=== PATIENT | female | born 1980 | race American Indian/Alaskan Native ===

== ENCOUNTER 2019-10-09 18:09 | Emergency (ER) | payer MEDICAID ==
--- NOTE | 2019-10-09 19:40 | Event Note ---
ED Screening Note ED Screening Note: generalized weakness states that left hip pain which is chronic states she has bilateral rib pain states she had surgery on the left hip in May 04, on coumadin and lovenox, flexeril, gabapentin, flexeril, roxicodone This initial assessment/diagnostic orders/clinical plan/treatment(s) is/are subject to change based on patients health status, clinical progression and re- assessment by fellow clinical providers in the ED. Further treatment and workup at subsequent clinical providers discretion. Patient/guardian urged not to elope from the ED as their condition may be serious if not clinically assessed and managed. Initial orders include: labs, XR chest
[2019-10-09 20:14] LABS: Hematocrit 32.6 % (30.3-42.9); Hemoglobin 10.7 gm/dl (10.1-14.3); Mean Corpuscular HGB Conc 33 % (30-34); Mean Corpuscular Volume 83 fl (79-97); Platelet Count 249 K/mm3 (140-440); Red Blood Count 3.94 M/mm3 (3.65-5.03); Red Cell Distribution Width 16.3 % (13.2-15.2)
[2019-10-09 20:22] LABS: Lymphocytes % (Auto) 44.7 % (13.4-35.0)
[2019-10-09 20:23] LABS: Basophils # (Auto) 0.1 K/mm3 (0.0-0.1); Basophils % (Auto) 2.9 % (0.0-1.8); Eosinophils # (Auto) 0.1 K/mm3 (0.0-0.4); Eosinophils % (Auto) 2.9 % (0.0-4.3); Lymphocytes # (Auto) 1.9 K/mm3 (1.2-5.4); Monocytes # (Auto) 0.3 K/mm3 (0.0-0.8)
[2019-10-09 20:34] LABS: Alanine Aminotransferase 6 units/L (7-56); Albumin 3.8 g/dL (3.9-5); BUN/Creatinine Ratio 16; Blood Urea Nitrogen 11 mg/dL (7-17); Calcium 8.8 mg/dL (8.4-10.2); Hemolysis Index 9
[2019-10-09 21:49] LABS: Bacteria,Urine 1+ /HPF (Negative); Color,Urine Yellow (Yellow); Ictotest,Urine Negative (Negative); Urobilinogen,Urine < 2.0 mg/dL (<2.0)
--- NOTE | 2019-10-09 21:54 | XRay Report ---
CHEST 2 VIEWS INDICATION / CLINICAL INFORMATION: bilateral rib pain. COMPARISON: None available. FINDINGS: SUPPORT DEVICES: None. HEART / MEDIASTINUM: No significant abnormality. LUNGS / PLEURA: No significant pulmonary or pleural abnormality. No pneumothorax. ADDITIONAL FINDINGS: No significant additional findings. IMPRESSION: 1. No acute abnormality of the chest. Signer Name: Sergio Vick MD Signed: 10/09/2019 9:50 PM Workstation Name: [id number]
--- NOTE | 2019-10-10 00:20 | Emergency Department Report ---
ED General Adult HPI - General Chief complaint: Extremity Injury, Lower Stated complaint: CHEST PAIN/RT SIDE NUMB/SHARP PAIN Time Seen by Provider: 10/09/19 19:37 Source: patient Mode of arrival: Ambulatory Limitations: No Limitations - History of Present Illness Initial comments: Pt is a 39 y/o aaf who presents requesting pain medication. pt states she is currently taking, roxicodone, flexeril, gabapentin, lovenox, and coumadin, s/p orif right hip and rle in april 2019. states she is out of pain medication and just happened to be in hospital visiting her boyfriend all week. Pt denies new fall injury or trauma, There is no cp, no sob, no n/v, no back pain, no diaphoresis, numbness, pt is a/o x 3, ambulatory with steady gait. She states this is chronic pain but she needs pain medicine. Onset/Timin -: month(s) Location: lower extremity Radiation: extremity Severity scale (0 -10): 4 Quality: aching Consistency: constant Improves with: medication Worsens with: movement Associated Symptoms: denies: denies other symptoms Treatments Prior to Arrival: none - Related Data Previous Rx's Medication Instructions Recorded Last Taken Type Acetaminophen [Acetaminophen TAB] 1,000 mg PO Q6HR PRN 1 Days #30 10/10/19 Unk nown Rx tablet Menthol/Camphor [[place] 1 applicatio TP QID PRN #1 tube 10/10/19 Unknown Rx Ointment] Allergies Allergy/AdvReac Type Severity Reaction Status Date / Time No Known Allergies Allergy Verified 10/09/19 19:42 ED Review of Systems ROS: Stated complaint: CHEST PAIN/RT SIDE NUMB/SHARP PAIN Other details as noted in HPI Constitutional: denies: chills, fever Eyes: denies: eye pain, eye discharge, vision change ENT: denies: ear pain, throat pain Respiratory: denies: cough, shortness of breath, wheezing Cardiovascular: denies: chest pain, palpitations Endocrine: no symptoms reported Gastrointestinal: denies: abdominal pain, nausea, diarrhea Genitourinary: denies: urgency, dysuria, discharge Musculoskeletal: denies: back pain, joint swelling, arthralgia Skin: denies: rash, lesions Neurological: denies: headache, weakness, paresthesias Psychiatric: denies: anxiety, depression Hematological/Lymphatic: denies: easy bleeding, easy bruising ED Past Medical Hx - Past Medical History Hx Sickle Cell Disease: Yes - Surgical History Additional Surgical History: PELVIS/ HIP TAIL BONE SURGERY - Social History Smoking Status: Current Every Day Smoker Substance Use Type: Alcohol, Marijuana - Medications Home Medications: Home Medications Medication Instructions Recorded Confirmed Last Taken Type Acetaminophen [Acetaminophen TAB] 1,000 mg PO Q6HR PRN 1 Days #30 10/10/19 Unknown Rx tablet Menthol/Camphor [[place] 1 applicatio TP QID PRN #1 tube 10/10/19 Unknown Rx Ointment] ED Physical Exam - General Limitations: No Limitations General appearance: alert, in no apparent distress - Head Head exam: Present: atraumatic, normocephalic - Eye Eye exam: Present: normal appearance, PERRL, EOMI - ENT ENT exam: Present: mucous membranes moist - Neck Neck exam: Present: normal inspection, full ROM. Absent: tenderness, meningismus, lymphadenopathy - Respiratory Respiratory exam: Present: normal lung sounds bilaterally. Absent: respiratory distress, wheezes, stridor, chest wall tenderness - Cardiovascular Cardiovascular Exam: Present: regular rate, normal rhythm, normal heart sounds. Absent: systolic murmur, diastolic murmur, rubs, gallop - GI/Abdominal GI/Abdominal exam: Present: soft, normal bowel sounds. Absent: distended, tenderness, bruit, hernia - Rectal Rectal exam: Present: deferred - Extremities Exam Extremities exam: Present: normal inspection, full ROM, normal capillary refill. Absent: tenderness, pedal edema, joint swelling, calf tenderness - Back Exam Back exam: Present: normal inspection, full ROM. Absent: tenderness, CVA tenderness (R), CVA tenderness (L), vertebral tenderness, rash noted - Neurological Exam Neurological exam: Present: alert, oriented X3, CN II-XII intact, normal gait, reflexes normal. Absent: motor sensory deficit - Psychiatric Psychiatric exam: Present: normal affect, normal mood - Skin Skin exam: Present: warm, dry, intact, normal color. Absent: rash ED Course Vital Signs 10/09/19 18:28 Temperature 98.6 F Pulse Rate 79 Respiratory 19 Rate Blood Pressure 120/81 O2 Sat by Pulse 98 Oximetry ED Medical Decision Making - Lab Data Result diagrams: 10/09/19 19:54 10/09/19 19:54 Labs 10/09/19 10/09/19 10/09/19 19:54 19:54 21:14 WBC 4.3 L RBC 3.94 Hgb 10.7 Hct 32.6 MCV 83 MCH 27 L MCHC 33 RDW 16.3 H Plt Count 249 Lymph % (Auto) 44.7 H [place] % (Auto) 7.0 Eos % (Auto) 2.9 Baso % (Auto) 2.9 H Lymph # 1.9 [place] # 0.3 Eos # 0.1 Baso # 0.1 Seg Neutrophils % 42.5 Seg Neutrophils # 1.8 Sodium 140 Potassium 4.7 Chloride 105.0 Carbon Dioxide 23 Anion Gap 17 BUN 11 Creatinine 0.7 Estimated GFR > 60 BUN/Creatinine Ratio 16 Glucose 93 Calcium 8.8 Total Bilirubin < 0.20 AST 11 ALT 6 L Alkaline Phosphatase 58 Total Protein 6.8 Albumin 3.8 L Albumin/Globulin Ratio 1.3 Urine Color Yellow Urine Turbidity Clear Urine pH 7.0 Urine Protein 30 mg/dl Urine Glucose (UA) Negative Urine Ketones Negative Urine Nitrite Negative Urine Ictotest Negative Urine Urobilinogen < 2.0 Ur Leukocyte Esterase Negative Urine WBC (Auto) 4.0 Urine RBC (Auto) 4.0 Urine Bacteria (Auto) 1+ - EKG Data Rate: normal - EKG Data When compared to previous EKG there are: previous EKG unavailable Interpretation: normal EKG (ekg interp be ed attending NSR no ST Elevated CT ) - Radiology Data Findings [address] [address] XRay Report Signed Patient: BRIDGET MORENO MR#: [id number] : 1980 Acct:[id number] Age/Sex: 39 / F ADM Date: 10/09/19 Loc: ED Attending Dr: Ordering Physician: BINDU ADAN Date of Service: 10/09/19 Procedure(s): XR chest routine 2V Accession Number(s): [id number] cc: BINDU ADAN Fluoro Time In Minutes: CHEST 2 VIEWS INDICATION / CLINICAL INFORMATION: bilateral rib pain. COMPARISON: None available. FINDINGS: SUPPORT DEVICES: None. HEART / MEDIASTINUM: No significant abnormality. LUNGS / PLEURA: No significant pulmonary or pleural abnormality. No pneumothorax. ADDITIONAL FINDINGS: No significant additional findings. IMPRESSION: 1. No acute abnormality of the chest. Signer Name: Sergio Vick MD Signed: 10/09/2019 9:50 PM Workstation Name: [id number] Transcribed By: ART Dictated By: Sergio Vick MD Electronically Authenticated By: Sergio Vick MD Signed Date/Time: 10/09/192149 DD/ 49 TD/TT: - Medical Decision Making this is chronic limb pain without new fall injury or trauma, pt is a/o x 3, ambulatory with steady gait, will be dc'd to self at this time , will follow up with Orthopedic surgery in 2-3 days. pt verbalized agreement and understanding o f same. Critical care attestation.: If time is entered above; I have spent that time in minutes in the direct care of this critically ill patient, excluding procedure time. ED Disposition Clinical Impression: Musculoskeletal pain Disposition: DC-01 TO HOME OR SELFCARE Is pt being admited?: No Does the pt Need Aspirin: No Condition: Stable Instructions: Musculoskeletal Pain (ED) Prescriptions: Acetaminophen [Acetaminophen TAB] 1,000 mg PO Q6HR PRN 1 Days #30 tablet PRN Reason: Pain , Severe (7-10) Menthol/Camphor [[place] Ointment] 1 applicatio TP QID PRN #1 tube PRN Reason: pain Referrals: CHERELLE CEDENO MD [Staff Physician] - 3-5 Days
[2019-10-10] MEDS ORDERED: HYDROcodone/ACETAMINOPHEN 5-325 MG TAB PO ONE (00:21)
[2019-10-10 01:00] VITALS: BP 104/46
== END 2019-10-10 01:00 | disposition home or self-care (01) ==
LOC: ED 18:09
DX: M79.18 Myalgia, other site (principal); D57.1 Sickle-cell disease without crisis; F17.200 Nicotine dependence, unspecified, uncomplicated; F12.10 Cannabis abuse, uncomplicated; Z98.890 Other specified postprocedural states; Z79.899 Other long term (current) drug therapy
CPT/HCPCS: 36415; 71046; 80053; 81001; 84703; 85025; 93005; 93010